=== PATIENT | female | born 1950 | race Two or more races ===

== ENCOUNTER → 2024-05-24 | Emergency (ER) | payer OTHER ==
[~2024-05-24] VITALS: Ht 152.4 cm; Wt 59.0 kg
[~2024-05-24] MED LIST: 0.9 % SODIUM CHLORIDE 500 ML IV STA; ARMOUR THYROID15 MG; FAMOTIDINE/PF 20 MG/2 ML VIAL ONE; FAMOtidine 10 MG/ML (4ML VIAL) IV PUSH STA; METOCLOPRAMIDE HCL 5 MG/ML VIAL IM STA; PROMETHAZINE HCL 50 MG/ML AMPUL IM ONE; PROMETHAZINE HCL 50 MG/ML AMPUL IM STA; [UNRECOGNIZED DRUG - REMARK]
== END | disposition home or self-care (01) ==
LOC: ER 02:35
DX: F41.9 Anxiety disorder, unspecified (principal); K21.9 Gastro-esophageal reflux disease without esophagitis; Z91.018 Allergy to other foods; Z91.040 Latex allergy status
CPT/HCPCS: 96365; 96366; 96372; 99282; J2550; J2765; J3490; J7042